=== PATIENT | male | born 1980 | race Caucasian/White ===

== ENCOUNTER → 2019-11-23 | Outpatient (CLI) | payer SELFPAY ==
[2019-11-23 16:08] LABS: HEMOGLOBIN 11.8 g/dl (13.5-18.0); MEAN CELL VOLUME 101 fl (80.0-100.0); MEAN CORPUSCULAR HEMOGLOBIN 34 pg (27.0-31.0); MEAN CORPUSCULAR HGB CONC 33 g/dl (33.0-37.0); MEAN PLATELET VOLUME 9.5 fl (7.4-10.4); PLATELET COUNT 361 K/mm3 (130-400); RED BLOOD COUNT 3.51 M/mm3 (4.20-5.60)
[2019-11-23 16:10] LABS: HEMATOCRIT 35.3 % (42.0-52.0)
[2019-11-23 16:12] LABS: PROTHROMBIN TIME 11.3 SECONDS (9.7-12.8)
[2019-11-23 16:19] LABS: BILIRUBIN UNCONJUGATED 2.1 mg/dL (0.0-1.1); BILIRUBIN,DIRECT 16.3 mg/dL (0.0-0.4); BILIRUBIN,TOTAL 18.4 mg/dL (0.0-1.0); CALCIUM 9.5 mg/dL (8.4-10.2); CREATININE, serum 0.76 (0.66-1.25); POTASSIUM 3.7 mmol/L (3.4-5.0); TOTAL PROTEIN 7.8 gm/dL (6.4-8.2)
[2019-11-23 16:40] LABS: ALBUMIN 3.7 gm/dL (3.5-5.0)
== END ==
LOC: COL.LAB 15:32
PROVIDERS: Family Medicine
DX: R16.0 Hepatomegaly, not elsewhere classified (principal)

== ENCOUNTER → 2019-11-30 | Outpatient (CLI) | payer SELFPAY | LOC: COL.RAD 07:23 | DX: R17 Unspecified jaundice (principal) ==

== ENCOUNTER 2019-12-01 10:41 | Day surgery (SDC) | payer SELFPAY ==
[~2019-12-01] VITALS: Ht 182.9 cm; Wt 87.2 kg
[2019-12-01] VITALS (7 sets, daily range): BP systolic 107–134; BP diastolic 54–78; PULSE 77–87; TEMP 97.2–98.5
--- NOTE | 2019-12-01 13:25 | NUR ---
Patient arrives to [facility] [place] [address] via cart, accompanied by [employer]ER Loraine. He is alert and oriented. Monitoring applied - VSS and WNL on room air. His parents are brought to the bedside. He denies pain or nausea. He is given clear liquids to drink. Per Dr. Lora, patient may discharge home at 1420.
--- NOTE | 2019-12-01 13:55 | NUR ---
Patient is resting comfortably in room. He denies any pain, nausea, or needs.
--- NOTE | 2019-12-01 14:18 | NUR ---
Patient had a 20 gauge PIV in the right hand that was removed during the procedure.
--- NOTE | 2019-12-01 14:25 | NUR ---
VSS and WNL on room air. Patient has met discharge criteria. Discharge instructions are discussed, he denies any questions and verbalizes understanding. PIV removed with catheter intact and hemostasis achieved.
--- NOTE | 2019-12-01 14:50 | NUR ---
Patient is escorted to the exit via wheelchair. Discharged to home with ride in private vehicle at 1450.
== END 2019-12-01 14:50 | disposition home or self-care (01) ==
LOC: SDCO 10:41
DX: K83.1 Obstruction of bile duct (principal); K83.8 Other specified diseases of biliary tract; K31.84 Gastroparesis; Z87.891 Personal history of nicotine dependence
CPT/HCPCS: C1769; C2625; J2250; J2704; J3010; Q9967

== ENCOUNTER → 2019-12-08 | Outpatient (CLI) | payer OTHER ==
[2019-12-08 15:53] LABS: BASO # 0.1 (0.0-0.2); BASO % 0.8 % (0.0-2.0); EOS # 0.5 (0.0-0.7); EOS % 4.8 % (0-4.0); GRAN # 6.1 (1.4-6.5); GRAN % 64.3 % (42.2-75.2); HEMATOCRIT 33.2 % (42.0-52.0); LYMPH # 2.1 (1.2-3.4); LYMPH % 21.8 % (20.0-51.0); MEAN CELL VOLUME 103 fl (80.0-100.0); MEAN CORPUSCULAR HEMOGLOBIN 34 pg (27.0-31.0); MEAN CORPUSCULAR HGB CONC 33 g/dl (33.0-37.0); MEAN PLATELET VOLUME 8.9 fl (7.4-10.4); MONO # 0.7 (0.1-0.6); MONO % 7.7 % (1.7-9.3); PLATELET COUNT 408 K/mm3 (130-400); RED BLOOD COUNT 3.24 M/mm3 (4.20-5.60); REDCELL DISTRIBUTION WIDTH-CV 13.5 % (11.5-14.5)
[2019-12-08 16:06] LABS: ALBUMIN 3.7 gm/dL (3.5-5.0); BILIRUBIN,TOTAL 5.6 mg/dL (0.0-1.0); CALCIUM 9.4 mg/dL (8.4-10.2); CREATININE, serum 0.78 (0.66-1.25); TOTAL PROTEIN 7.3 gm/dL (6.4-8.2)
== END ==
LOC: COL.LAB 15:08
PROVIDERS: Student in an Organized Health Care Education/Training Program
DX: K83.1 Obstruction of bile duct (principal)

== ENCOUNTER → 2021-03-06 | Outpatient (CLI) | payer SELFPAY ==
[2021-03-06 15:54] LABS: HEMATOCRIT 39.2 % (42.0-52.0); HEMOGLOBIN 12.9 g/dl (13.5-18.0); MEAN CELL VOLUME 95 fl (80.0-100.0); MEAN CORPUSCULAR HEMOGLOBIN 31 pg (27.0-31.0); MEAN CORPUSCULAR HGB CONC 33 g/dl (33.0-37.0); MEAN PLATELET VOLUME 9.9 fl (7.4-10.4); PLATELET COUNT 359 K/mm3 (130-400); RED BLOOD COUNT 4.14 M/mm3 (4.20-5.60); REDCELL DISTRIBUTION WIDTH-CV 17.2 % (11.5-14.5)
[2021-03-06 16:07] LABS: ALBUMIN 3.8 gm/dL (3.5-5.0); BILIRUBIN,TOTAL 12.6 mg/dL (0.0-1.0); CALCIUM 9.6 mg/dL (8.4-10.2); CREATININE, serum 0.75 (0.66-1.25); TOTAL PROTEIN 8.5 gm/dL (6.4-8.2)
[2021-03-06 16:24] LABS: EOSINOPHIL 7 % (0-4); LYMPHOCYTE 12 % (20.0-51.0); NEUTROPHILS 73 % (42.0-75.2)
[2021-03-06 16:25] LABS: ANISOCYTOSIS 1+; HYPOCHROMIA 1+; PLATELET ESTIMATE NORMAL (NORMAL)
[2021-03-06 16:28] LABS: TARGET CELLS 1+
[2021-03-07 07:42] LABS: PATHOLOGY DIFF REVIEW OK
== END ==
LOC: COL.RAD 14:15
PROVIDERS: Student in an Organized Health Care Education/Training Program
DX: K85.90 Acute pancreatitis without necrosis or infection, unspecified (principal); R17 Unspecified jaundice; K83.9 Disease of biliary tract, unspecified; Z96.89 Presence of other specified functional implants
CPT/HCPCS: Q9967

== ENCOUNTER 2021-03-07 13:44 | Day surgery (SDC) | payer OTHER ==
[~2021-03-07] VITALS: Ht 182.9 cm; Wt 100.7 kg
[2021-03-07] VITALS (7 sets, daily range): BP systolic 117–146; BP diastolic 56–95; PULSE 77–94; TEMP 98.2
--- NOTE | 2021-03-07 14:47 | NUR ---
TO RM AT 1410- CALL LIGHT IN REACH WILL CALL MOTHER FOR RIDE HOME
--- NOTE | 2021-03-07 16:15 | NUR ---
Patient arrives back to [facility] and checked in per ALLISON Simeon.
--- NOTE | 2021-03-07 16:45 | NUR ---
Patient care taken over. Patient resting comfortably in chair. Vitals stable.
--- NOTE | 2021-03-07 17:20 | NUR ---
Patient awake at this time. Patient given jello and crackers. Tolerating water well.
--- NOTE | 2021-03-07 17:45 | NUR ---
Patient tolerated food and drink without any nausea, vomiting or pain. Vitals stable. Patient reports he is ready to go home.
--- NOTE | 2021-03-07 18:00 | NUR ---
Dismissal instructions gone over with patient. Patient voices understanding and all questions answered.
--- NOTE | 2021-03-07 18:05 | NUR ---
Patient discharged to private vehicle at patient enterance via wheelchair and without any complications. Patient and family leave thanking staff for services.
== END 2021-03-07 18:05 | disposition home or self-care (01) ==
LOC: SDCO 13:44
DX: K80.50 Calculus of bile duct without cholangitis or cholecystitis without obstruction (principal); K83.8 Other specified diseases of biliary tract; T85.898A Other specified complication of other internal prosthetic devices, implants and grafts, initial encounter; F17.210 Nicotine dependence, cigarettes, uncomplicated; Z20.822 Contact with and (suspected) exposure to COVID-19
CPT/HCPCS: C1769; J2704; J3010; J7030; Q9967

== ENCOUNTER → 2021-04-07 | Outpatient (CLI) | payer OTHER ==
[2021-04-07 15:48] LABS: ALBUMIN 4.1 gm/dL (3.5-5.0); CALCIUM 9.9 mg/dL (8.4-10.2); CREATININE, serum 0.97 (0.66-1.25); POTASSIUM 4.1 mmol/L (3.4-5.0); TOTAL PROTEIN 7.5 gm/dL (6.4-8.2)
== END ==
LOC: COL.LAB 15:09
PROVIDERS: Student in an Organized Health Care Education/Training Program
DX: K83.1 Obstruction of bile duct (principal)